=== PATIENT | male | born 1965 | race Caucasian/White ===

== ENCOUNTER 2018-10-16 09:34 | Emergency (ER) | payer OTHER ==
[~2018-10-16] VITALS: Ht 160 cm; Wt 65.8 kg
[2018-10-16] MEDS ORDERED: KEPPRA500 MG PO (09:37)
[2018-10-16] MEDS ORDERED: COZAAR50 MG PO (09:37)
[2018-10-16] MEDS ORDERED: SYNTHROID50 MCG PO (09:38)
[2018-10-16] MEDS ORDERED: XANAX2 MG PO (13:04)
== END 2018-10-16 13:14 | disposition home or self-care (01) ==
LOC: ER 09:34
DX: R00.2 Palpitations (principal); F06.4 Anxiety disorder due to known physiological condition

== ENCOUNTER → 2018-12-08 | Emergency (ER) | payer OTHER ==
[~2018-12-08] VITALS: Ht 165.1 cm; Wt 67.1 kg
[~2018-12-08] MED LIST: COZAAR50 MG PO; KEPPRA500 MG PO; SYNTHROID50 MCG PO; XANAX2 MG PO
== END | disposition left against medical advice (07) ==
LOC: ER 09:18
DX: G40.89 Other seizures (principal)

== ENCOUNTER → 2020-02-09 | Emergency (ER) | payer OTHER ==
[~2020-02-09] VITALS: Ht 165.1 cm; Wt 63.5 kg
== END | disposition left against medical advice (07) ==
LOC: ER 13:51
DX: R41.0 Disorientation, unspecified (principal); R53.81 Other malaise

== ENCOUNTER 2020-05-05 11:11 | Emergency (ER) | payer OTHER ==
[~2020-05-05] VITALS: Ht 165.1 cm; Wt 65.3 kg
[2020-05-05] MEDS ORDERED: SIMVASTATIN5 MG (11:56)
[2020-05-05] MEDS ORDERED: NORFLEX100MG PO (16:01)
[2020-05-05] MEDS ORDERED: KETO10TA2 PO (16:01)
== END 2020-05-05 17:15 | disposition home or self-care (01) ==
LOC: ER 11:11
DX: R53.1 Weakness (principal); M54.5 Low back pain; Z03.818 Encounter for observation for suspected exposure to other biological agents ruled out